=== PATIENT | male | born 1955 | race Caucasian/White ===

== ENCOUNTER → 2018-08-15 | Outpatient (CLI) | payer BC | END | disposition home or self-care (01) | LOC: CFH 07:04 | PROVIDERS: ATTEND Family Medicine | DX: M51.37 Other intervertebral disc degeneration, lumbosacral region (principal); M48.07 Spinal stenosis, lumbosacral region; M71.38 Other bursal cyst, other site | CPT/HCPCS: 72148 ==

== ENCOUNTER → 2019-07-05 | Outpatient (CLI) | payer BC | END | disposition home or self-care (01) | LOC: CFH 12:12 | PROVIDERS: ATTEND Registered Nurse | DX: I71.9 Aortic aneurysm of unspecified site, without rupture (principal); I25.10 Atherosclerotic heart disease of native coronary artery without angina pectoris; I10 Essential (primary) hypertension; E11.9 Type 2 diabetes mellitus without complications | CPT/HCPCS: 78452; 93017; A9502 ==

== ENCOUNTER → 2021-01-06 | Outpatient (CLI) | payer BC | END | disposition home or self-care (01) | LOC: CVU 13:35 | PROVIDERS: ATTEND Internal Medicine Cardiovascular Disease | DX: I08.8 Other rheumatic multiple valve diseases (principal); I71.2 Thoracic aortic aneurysm, without rupture; I11.9 Hypertensive heart disease without heart failure; E78.5 Hyperlipidemia, unspecified; Z87.891 Personal history of nicotine dependence | CPT/HCPCS: 93306 ==